=== PATIENT | male | born 1990 | race Two or more races ===

== ENCOUNTER 2024-03-13 14:06 | Emergency (ER) | payer OTHER ==
[~2024-03-13] VITALS: Ht 172.7 cm; Wt 153.3 kg
[2024-03-13] MEDS ORDERED: ORPHENADRINE CITRATE 30 MG/ML AMPUL IM ONE (15:15)
[2024-03-13] MEDS ORDERED: KETOROLAC TROMETHAMINE 60 MG VIAL IM ONE (15:15)
[2024-03-13] MEDS ORDERED: TRIAMCINOLONE ACETONIDE 40 MG/ML VIAL IM ONE (15:15)
[2024-03-13] MEDS ORDERED: NORFLEX100MG PO (16:38)
[2024-03-13] MEDS ORDERED: DICLOFENAC SODI75 MG PO (16:38)
== END 2024-03-13 16:53 ==
LOC: ER 14:08
DX: M54.16 Radiculopathy, lumbar region (principal); M54.50 Low back pain, unspecified